=== PATIENT | male | born 1965 | race Caucasian/White ===

== ENCOUNTER 2017-01-05 11:24 | Emergency (ER) | payer OTHER ==
[~2017-01-05] VITALS: Ht 152.4 cm; Wt 43.3 kg
[~2017-01-05 11:24] MED LIST: AIRBORNE TABLE1 EAC1 PO; ALEVAZOL56.7 GM TP; ALLERGY REL1 MG/1 M1 PO; AMOX TR-K CLV1 EAC4 PO; ASCORBIC ACID250 MG PO; ASCORBIC ACID500 MG PO; AUGMENTIN80 MG/ML PO; BISAC-EVAC10 MG PR; CARBAMAZEP100 MG/5 M PO; CHILDREN'S100 MG/51 PO; DULCOLAX10 MG PR; DUONEB 2.5-0.5 M3 ML AEROSOL; FLONASE16 G1 BOTH NARES; FLONASE16 GM NS; FLUTICASONE PRO16 GM BOTH NARES; FORTICAL3.7 ML ALT NARES; FORTICAL3.7 ML NS; HYCODAN SYRUP480 ML PO; KEPPRA100 MG/1 M PO; LAMICTAL100 MG PO; LAMICTAL150 M1 PO; LAMICTAL200 MG PO; LAMOTRIGINE200 MG PO; LEVETIRACE100 MG/1 M PO; LIQUITUSS200 MG/5 M PO; LORAZEPAM1 MG PO; MIRALAX17 GM PO; MIRALAX255 GM PO; MYCOSTATIN 100,60 ML PO; NEBS; NEXIUM40 MG PO; NYSTOP60 GM TP; PERIDEX1 ML MM; PROVENTIL,2.5 MG/3 M IH; SINGULAIR10 MG PO; TEGRETOL100 MG/5 M PO; TESSALON PERLE100 MG PO; TUMS500 MG PO; VITAMIN D2000 UNI1 PO; VITAMIN D31000 UNI2 PO; VITAMIN D31000 UNIT PO; ZANTAC150 MG PO; ZANTAC75 M1 PO; ZYRTEC SYRUP1 MG/ML PO
[2017-01-05 12:58] LABS: EOSINOPHIL (%) 0.4 % (0-5); EOSINOPHIL COUNT 0.1 K/uL (0-0.3); HEMATOCRIT 39.4 % (38.0-50.0); IMMATURE GRANULOCYTE (%) 0.4 % (0.0-0.7); IMMATURE GRANULOCYTE COUNT 0.5 K/uL; LYMPHOCYTE COUNT 0.5 K/uL (1.0-2.8); MCH 32.5 PG (29.0-34.0); MCHC 34.3 G/DL (30.0-36.0); MCV 94.7 FL (86-99); MEAN PLAT.VOLUME 8.5 uM^3 (9.0-12.4); MONOCYTE (%) 11.9 % (3-12); MONOCYTE COUNT 1.4 K/uL (0-0.8); NEUTROPHIL (%) 82.4 % (45-76); NEUTROPHIL COUNT 9.5 K/uL (1.8-6.4); PLATELET COUNT 313 K/uL (156-360); RBC DIS.WIDTH-CV 13.7 % (11.8-14.6); RED BLOOD COUNT 4.16 M/uL (4.00-5.50); WHITE BLOOD COUNT 11.5 K/uL (4.1-10.2)
[2017-01-05 13:06] LABS: CHLORIDE 100 mEq/L (99-109); POTASSIUM 3.9 mEq/L (3.7-5.4); SODIUM 137 mEq/L (136-147)
[2017-01-05 13:08] LABS: GLUCOSE 113 mg/dL (70-99)
[2017-01-05 13:09] LABS: ANION GAP 10 MEQ/L (2-14)
[2017-01-05 13:12] LABS: GFR ESTIMATE (CALCULATED) > 59 mL/min/; UREA NITROGEN (BUN) 13 mg/dL (9-23)
[2017-01-05 14:59] LABS: ADD MIUA? YES; BILIRUBIN NEGATIVE; BLOOD NEGATIVE; GLUCOSE (STRIP) NEGATIVE; KETONES NEGATIVE; LEUKOCYTES NEGATIVE; NITRITE NEGATIVE; PROTEIN (STRIP) 30; SPECIFIC GRAVITY 1.021 (1.000-1.030)
[2017-01-05 15:02] LABS: COLOR DK YELLOW ((YELLOW))
[2017-01-05 15:10] LABS: AMORPHOUS PHOSPHATE CRYSTALS 4+; BACTERIA RARE /HPF; CALCIUM OXALATE CRYSTALS RARE /HPF; CASTS NONE SEEN /LPF; CRYSTALS PRESENT; EPITHELIAL CELLS NONE SEEN /HPF; MUCUS 2+ /LPF; RED BLOOD CELLS RARE /HPF (0-5); UCUL ADDED? NO; WHITE BLOOD CELLS 0-5 /HPF (0-5)
[2017-01-05] MEDS ORDERED: AMOXICILLI250 MG/5 M PO (15:24)
[2017-01-05 16:40] VITALS: BP 105/69
== END 2017-01-05 16:59 | disposition home or self-care (01) ==
LOC: EME → EDBD 11:24 → EME 11:24
PROVIDERS: Emergency Medicine
DX: J44.0 Chronic obstructive pulmonary disease with (acute) lower respiratory infection (principal); J20.9 Acute bronchitis, unspecified; J45.909 Unspecified asthma, uncomplicated; G80.9 Cerebral palsy, unspecified
CPT/HCPCS: 71010; 80048; 81003; 85025; 99281; 99284

== ENCOUNTER 2017-02-08 13:28 | Inpatient (IN) | payer OTHER ==
[~2017-02-08] VITALS: Ht 175.3 cm; Wt 44.6 kg
[~2017-02-08 13:28] MED LIST changes: +AMOXICILLI250 MG/5 M PO
[2017-02-08 13:59] LABS: MCH 31.6 PG (29.0-34.0); MCHC 33.4 G/DL (30.0-36.0); MCV 94.6 FL (86-99); MEAN PLAT.VOLUME 8.1 uM^3 (9.0-12.4); PLATELET COUNT 437 K/uL (156-360); RBC DIS.WIDTH-CV 13.4 % (11.8-14.6); RBC DIS.WIDTH-SD 47.2 % (39-53); RED BLOOD COUNT 4.65 M/uL (4.00-5.50); WHITE BLOOD COUNT 5.6 K/uL (4.1-10.2)
[2017-02-08 14:12] LABS: CHLORIDE 95 mEq/L (99-109); POTASSIUM 4.7 mEq/L (3.7-5.4); SODIUM 132 mEq/L (136-147)
[2017-02-08 14:16] LABS: ANION GAP 12 MEQ/L (2-14); GLUCOSE 117 mg/dL (70-99); MAGNESIUM 2.5 mg/dL (1.3-2.7)
[2017-02-08 14:18] LABS: GFR ESTIMATE (CALCULATED) > 59 mL/min/
[2017-02-08 14:19] LABS: UREA NITROGEN (BUN) 10 mg/dL (9-23)
[2017-02-08] MEDS ORDERED: TEGRETOL100 MG/5 M PO ×2 (17:24)
[2017-02-08] MEDS ORDERED: CALCITONIN-SAL3.8 ML ALT NARES (17:26)
[2017-02-08] MEDS ORDERED: DIASTAT2.5 MG PR (17:27)
[2017-02-08 21:30] VITALS: BP 104/69
[2017-02-08 22:45] VITALS: BP 110/70
[2017-02-09 06:37] LABS: MCH 31.7 PG (29.0-34.0); MCHC 33.3 G/DL (30.0-36.0); MEAN PLAT.VOLUME 9.1 uM^3 (9.0-12.4); PLATELET COUNT 400 K/uL (156-360); RBC DIS.WIDTH-CV 13.6 % (11.8-14.6); RBC DIS.WIDTH-SD 47.6 % (39-53); RED BLOOD COUNT 3.79 M/uL (4.00-5.50)
[2017-02-09 06:38] LABS: WHITE BLOOD COUNT 7.6 K/uL (4.1-10.2)
[2017-02-09 06:47] LABS: ALKALINE PHOSPHATASE 70 IU/L (3-129); ANION GAP 11 MEQ/L (2-14); CHLORIDE 97 MEQ/L (99-109); GFR ESTIMATE (CALCULATED) > 59 mL/min/; GLUCOSE 91 mg/dL (70-99); SAMPLE HEMOLYSIS CHECK 0; SAMPLE ICTERIC CHECK 0; SAMPLE LIPEMIA CHECK 0; SODIUM 135 MEQ/L (136-147); TOTAL BILIRUBIN 0.5 MG/DL (0.0-1.0); UREA NITROGEN (BUN) 8 mg/dL (9-23)
[2017-02-09 08:20] VITALS: BP 138/82
[2017-02-09 18:19] VITALS: BP 140/79
[2017-02-09 22:39] VITALS: BP 154/84
[2017-02-10 03:37] VITALS: BP 131/81
[2017-02-10 07:43] VITALS: BP 139/83
[2017-02-10] MEDS ORDERED: TEGRETOL100 MG/5 M PO (12:37)
== END 2017-02-10 15:13 | disposition home or self-care (01) | DRG 100 ==
LOC: EME → EDBD 13:28 → EME 13:28 → EDOF 19:28 → 5EAST 19:28
PROVIDERS: Emergency Medicine; Hospitalist
DX: G40.909 Epilepsy, unspecified, not intractable, without status epilepticus (principal); T42.1X5A Adverse effect of iminostilbenes, initial encounter; E87.1 Hypo-osmolality and hyponatremia; G80.0 Spastic quadriplegic cerebral palsy; J44.9 Chronic obstructive pulmonary disease, unspecified; K21.9 Gastro-esophageal reflux disease without esophagitis; M81.0 Age-related osteoporosis without current pathological fracture; D47.3 Essential (hemorrhagic) thrombocythemia; R13.10 Dysphagia, unspecified; J45.909 Unspecified asthma, uncomplicated; Z99.81 Dependence on supplemental oxygen
CPT/HCPCS: 71010; 80048; 80053; 80156; 81003; 83735; 85027; 93005; 95819; 99202; 99281; 99284; J1650; J1953; J2060; J7030; J7050

== ENCOUNTER 2017-06-20 23:25 | Observation (INO) | payer OTHER ==
[~2017-06-20] VITALS: Ht 175.3 cm; Wt 39.1 kg
[~2017-06-20 23:25] MED LIST changes: +CALCITONIN-SAL3.8 ML ALT NARES; +DIASTAT2.5 MG PR
[2017-06-21 00:23] LABS: EOSINOPHIL (%) 3.8 % (0-5); EOSINOPHIL COUNT 0.3 K/uL (0-0.3); HEMATOCRIT 39.7 % (38.0-50.0); IMMATURE GRANULOCYTE (%) 0.5 % (0.0-0.7); INSTRUMENT ABS NEUTROPHIL CT 4.9 K/uL; LYMPHOCYTE COUNT 0.9 K/uL (1.0-2.8); MCHC 33.5 G/DL (30.0-36.0); MCV 95.4 FL (86-99); MEAN PLAT.VOLUME 8.3 uM^3 (9.0-12.4); MONOCYTE (%) 7.6 % (3-12); MONOCYTE COUNT 0.5 K/uL (0-0.8); NEUTROPHIL COUNT 4.9 K/uL (1.8-6.4); PLATELET COUNT 348 K/uL (156-360); RBC DIS.WIDTH-CV 13.1 % (11.8-14.6); RED BLOOD COUNT 4.16 M/uL (4.00-5.50); WHITE BLOOD COUNT 6.6 K/uL (4.1-10.2)
[2017-06-21 00:34] LABS: CHLORIDE 96 mEq/L (99-109); POTASSIUM 4.1 mEq/L (3.7-5.4); SODIUM 134 mEq/L (136-147)
[2017-06-21 00:37] LABS: GLUCOSE 106 mg/dL (70-99)
[2017-06-21 00:38] LABS: ANION GAP 9 MEQ/L (2-14)
[2017-06-21 00:39] LABS: TOTAL BILIRUBIN 0.3 mg/dL (0.0-1.0)
[2017-06-21 00:40] LABS: ALKALINE PHOSPHATASE 76 IU/L (3-129); GFR ESTIMATE (CALCULATED) > 59 mL/min/
[2017-06-21 00:42] LABS: TROP-I INTERPRETATION NEGATIVE; TROPONIN-I < 0.01 ng/mL (0.0-0.30); UREA NITROGEN (BUN) 10 mg/dL (9-23)
[2017-06-21 00:43] LABS: CREATINE KINASE 39 IU/L (1-294); TOTAL CK 39 IU/L (1-294)
[2017-06-21 00:54] LABS: CK-MB 0.8 ng/mL (0.0-4.9)
[2017-06-21] MEDS ORDERED: TYLENOL EXTRA500 MG PO (01:06)
[2017-06-21 01:12] LABS: ADD MIUA? YES; BILIRUBIN NEGATIVE; BLOOD NEGATIVE; COLOR STRAW ((YELLOW)); GLUCOSE (STRIP) NEGATIVE; KETONES 5; LEUKOCYTES NEGATIVE; NITRITE NEGATIVE; PROTEIN (STRIP) NEGATIVE; UROBILINOGEN 0.2 MG/DL (0.2-1.0)
[2017-06-21 01:37] LABS: AMORPHOUS PHOSPHATE CRYSTALS 3+; BACTERIA NONE SEEN /HPF; CASTS NONE SEEN /LPF; CRYSTALS PRESENT; EPITHELIAL CELLS RARE /HPF; MUCUS NONE SEEN /LPF; RED BLOOD CELLS NONE SEEN /HPF (0-5); UCUL ADDED? NO; WHITE BLOOD CELLS RARE /HPF (0-5)
[2017-06-21 02:03] LABS: INTER. NORMALIZED RATIO 0.9; PROTHROMBIN TIME 10.3 SEC (10.2-12.9)
[2017-06-21 02:06] LABS: D-DIMER ELISA < 150.00 ng/mLDDU (<230); PTT 41.9 SEC (25-37)
[2017-06-21 04:57] VITALS: BP 151/117
[2017-06-21 06:58] LABS: TROP-I INTERPRETATION NEGATIVE; TROPONIN-I < 0.01 ng/mL (0.0-0.30)
[2017-06-21 09:13] VITALS: BP 152/89
[2017-06-21 11:57] VITALS: BP 147/75
[2017-06-21 13:50] LABS: TROP-I INTERPRETATION NEGATIVE; TROPONIN-I < 0.01 ng/mL (0.0-0.30)
[2017-06-21 16:28] VITALS: BP 116/68
[2017-06-21 21:31] VITALS: BP 185/88
[2017-06-22 00:45] VITALS: BP 134/76
[2017-06-22 03:30] VITALS: BP 95/57
[2017-06-22 06:02] LABS: HEMATOCRIT 33.9 % (38.0-50.0); MCH 31.7 PG (29.0-34.0); MCHC 33.3 G/DL (30.0-36.0); MEAN PLAT.VOLUME 8.6 uM^3 (9.0-12.4); PLATELET COUNT 324 K/uL (156-360); RBC DIS.WIDTH-CV 13.2 % (11.8-14.6); RBC DIS.WIDTH-SD 46.1 % (39-53); RED BLOOD COUNT 3.57 M/uL (4.00-5.50)
[2017-06-22 06:17] LABS: ANION GAP 6 MEQ/L (2-14); CHLORIDE 101 MEQ/L (99-109); GFR ESTIMATE (CALCULATED) > 59 mL/min/; GLUCOSE 85 mg/dL (70-99); POTASSIUM 3.9 MEQ/L (3.7-5.4); SAMPLE HEMOLYSIS CHECK 0; SAMPLE ICTERIC CHECK 0; SAMPLE LIPEMIA CHECK 0; SODIUM 137 MEQ/L (136-147); UREA NITROGEN (BUN) 18 mg/dL (9-23)
[2017-06-22 07:15] VITALS: BP 140/90
[2017-06-22 13:19] VITALS: BP 94/60
[2017-06-22] MEDS ORDERED: AMOX TR-K CLV1 EAC4 PO (13:33)
== END 2017-06-22 16:43 | disposition home or self-care (01) ==
LOC: EME → EDBD 23:25 → EME 23:25 → EDOF 06-21 01:38 → 5WEST 06-21 01:38 → ENRESERV 06-21 01:41 → 5WEST 06-21 04:34
PROVIDERS: Emergency Medicine; Hospitalist
DX: R06.02 Shortness of breath (principal); R09.02 Hypoxemia; J69.0 Pneumonitis due to inhalation of food and vomit; G40.901 Epilepsy, unspecified, not intractable, with status epilepticus; J44.9 Chronic obstructive pulmonary disease, unspecified; R13.10 Dysphagia, unspecified; G80.0 Spastic quadriplegic cerebral palsy; K21.9 Gastro-esophageal reflux disease without esophagitis; J30.9 Allergic rhinitis, unspecified; E87.1 Hypo-osmolality and hyponatremia; Z83.3 Family history of diabetes mellitus; Z88.1 Allergy status to other antibiotic agents; Z88.8 Allergy status to other drugs, medicaments and biological substances; Z79.82 Long term (current) use of aspirin
CPT/HCPCS: 70450; 71010; 71250; 80048; 80053; 80156; 80175 90; 81003; 82550; 82553; 83605; 84484; 85025; 85027; 85379; 85610; 85730; 87040; 93005; 95819; 99202; 99281; 99285; G0378; J1650; J2543; J7030; J7040; J7050

== ENCOUNTER 2017-07-08 22:31 | Emergency (ER) | payer OTHER ==
[~2017-07-08] VITALS: Ht 175.3 cm; Wt 37.9 kg
[~2017-07-08 22:31] MED LIST changes: +TYLENOL EXTRA500 MG PO
[2017-07-09 00:35] LABS: ADD MIUA? YES; BILIRUBIN NEGATIVE; BLOOD NEGATIVE; COLOR YELLOW ((YELLOW)); GLUCOSE (STRIP) NEGATIVE; KETONES NEGATIVE; LEUKOCYTES NEGATIVE; NITRITE NEGATIVE; PROTEIN (STRIP) 30; SPECIFIC GRAVITY 1.027 (1.000-1.030); UROBILINOGEN 0.2 MG/DL (0.2-1.0)
[2017-07-09 00:38] LABS: EOSINOPHIL (%) 4.9 % (0-5); EOSINOPHIL COUNT 0.2 K/uL (0-0.3); HEMATOCRIT 40.4 % (38.0-50.0); IMMATURE GRANULOCYTE (%) 0.2 % (0.0-0.7); INSTRUMENT ABS NEUTROPHIL CT 2.7 K/uL; MCH 32.2 PG (29.0-34.0); MCHC 33.9 G/DL (30.0-36.0); MCV 95.1 FL (86-99); MEAN PLAT.VOLUME 8.3 uM^3 (9.0-12.4); MONOCYTE (%) 14.4 % (3-12); MONOCYTE COUNT 0.7 K/uL (0-0.8); NEUTROPHIL (%) 58.2 % (45-76); NEUTROPHIL COUNT 2.7 K/uL (1.8-6.4); PLATELET COUNT 318 K/uL (156-360); RBC DIS.WIDTH-CV 13.1 % (11.8-14.6); RBC DIS.WIDTH-SD 45.8 % (39-53); RED BLOOD COUNT 4.25 M/uL (4.00-5.50); WHITE BLOOD COUNT 4.7 K/uL (4.1-10.2)
[2017-07-09 00:40] LABS: CHLORIDE 99 mEq/L (99-109); SODIUM 136 mEq/L (136-147)
[2017-07-09 00:46] LABS: UREA NITROGEN (BUN) 14 mg/dL (9-23)
[2017-07-09 01:07] LABS: GLUCOSE 90 mg/dL (70-99)
[2017-07-09 01:09] LABS: ANION GAP 10 MEQ/L (2-14)
[2017-07-09 01:11] LABS: GFR ESTIMATE (CALCULATED) > 59 mL/min/
[2017-07-09 01:22] LABS: BACTERIA 1+ /HPF; EPITHELIAL CELLS RARE /HPF; MUCUS 3+ /LPF; RED BLOOD CELLS 0-5 /HPF (0-5); UCUL ADDED? NO; WHITE BLOOD CELLS 0-5 /HPF (0-5)
[2017-07-09] MEDS ORDERED: AUGMENTIN875 MG PO (02:44)
[2017-07-09] MEDS ORDERED: AUGMENTIN80 MG/ML PO (04:12)
[2017-07-09 04:50] VITALS: BP 180/90
== END 2017-07-09 04:40 | disposition home or self-care (01) ==
LOC: EME → EDBD 22:31 → EME 07-09 04:40
PROVIDERS: Emergency Medicine
DX: K02.9 Dental caries, unspecified (principal); K05.10 Chronic gingivitis, plaque induced; J98.11 Atelectasis; G80.9 Cerebral palsy, unspecified; J44.9 Chronic obstructive pulmonary disease, unspecified; G40.909 Epilepsy, unspecified, not intractable, without status epilepticus; K21.9 Gastro-esophageal reflux disease without esophagitis
CPT/HCPCS: 71010; 71250; 80048; 81003; 83605; 85025; 87040; 87077; 87186; 87801; 94640; 99281; 99285; J7030

== ENCOUNTER 2017-07-19 10:58 | Emergency (ER) | payer OTHER ==
[~2017-07-19] VITALS: Ht 175.3 cm; Wt 39.7 kg
[~2017-07-19 10:58] MED LIST changes: +AUGMENTIN875 MG PO
[2017-07-19 13:42] LABS: CHLORIDE 97 mEq/L (99-109); SODIUM 133 mEq/L (136-147)
[2017-07-19 13:44] LABS: GLUCOSE 101 mg/dL (70-99)
[2017-07-19 13:45] LABS: ANION GAP 11 MEQ/L (2-14)
[2017-07-19 13:48] LABS: GFR ESTIMATE (CALCULATED) > 59 mL/min/; UREA NITROGEN (BUN) 10 mg/dL (9-23)
[2017-07-19 13:53] LABS: EOSINOPHIL (%) 0.4 % (0-5); HEMATOCRIT 37.3 % (38.0-50.0); IMMATURE GRANULOCYTE (%) 0.8 % (0.0-0.7); IMMATURE GRANULOCYTE COUNT 0.1 K/uL; LYMPHOCYTE COUNT 0.6 K/uL (1.0-2.8); MCH 32.6 PG (29.0-34.0); MCHC 34.6 G/DL (30.0-36.0); MCV 94.2 FL (86-99); MEAN PLAT.VOLUME 8.3 uM^3 (9.0-12.4); MONOCYTE (%) 3.7 % (3-12); MONOCYTE COUNT 0.4 K/uL (0-0.8); NEUTROPHIL (%) 89.3 % (45-76); PLATELET COUNT 298 K/uL (156-360); RBC DIS.WIDTH-CV 12.7 % (11.8-14.6); RBC DIS.WIDTH-SD 44.3 % (39-53); RED BLOOD COUNT 3.96 M/uL (4.00-5.50); WHITE BLOOD COUNT 11.2 K/uL (4.1-10.2)
[2017-07-19 14:35] LABS: SAMPLE HEMOLYSIS CHECK 1; SAMPLE ICTERIC CHECK 0; SAMPLE LIPEMIA CHECK 0
[2017-07-19] MEDS ORDERED: LEVAQUIN750 MG PO (14:35)
[2017-07-19 16:14] VITALS: BP 166/88
== END 2017-07-19 16:26 | disposition home or self-care (01) ==
LOC: EME 10:58
PROVIDERS: Emergency Medicine
DX: G40.909 Epilepsy, unspecified, not intractable, without status epilepticus (principal); J18.9 Pneumonia, unspecified organism; J44.0 Chronic obstructive pulmonary disease with (acute) lower respiratory infection; R11.2 Nausea with vomiting, unspecified; G80.9 Cerebral palsy, unspecified; I45.10 Unspecified right bundle-branch block
CPT/HCPCS: 71010; 80048; 80156; 85025; 93005; 99281; 99284

== ENCOUNTER 2017-07-23 10:48 | Emergency (ER) | payer OTHER ==
[~2017-07-23] VITALS: Ht 175.3 cm; Wt 40.3 kg
[~2017-07-23 10:48] MED LIST changes: +LEVAQUIN750 MG PO
[2017-07-23 12:11] LABS: EOSINOPHIL (%) 2.5 % (0-5); EOSINOPHIL COUNT 0.1 K/uL (0-0.3); HEMATOCRIT 39.2 % (38.0-50.0); IMMATURE GRANULOCYTE (%) 0.4 % (0.0-0.7); INSTRUMENT ABS NEUTROPHIL CT 3.8 K/uL; LYMPHOCYTE COUNT 0.9 K/uL (1.0-2.8); MCH 32.7 PG (29.0-34.0); MCHC 33.4 G/DL (30.0-36.0); MCV 97.8 FL (86-99); MONOCYTE COUNT 0.7 K/uL (0-0.8); NEUTROPHIL (%) 67.8 % (45-76); NEUTROPHIL COUNT 3.8 K/uL (1.8-6.4); RBC DIS.WIDTH-CV 13.2 % (11.8-14.6); RBC DIS.WIDTH-SD 46.8 % (39-53); RED BLOOD COUNT 4.01 M/uL (4.00-5.50); WHITE BLOOD COUNT 5.7 K/uL (4.1-10.2)
[2017-07-23 12:13] LABS: MEAN PLAT.VOLUME 8.4 uM^3 (9.0-12.4); PLATELET COUNT 313 K/uL (156-360)
[2017-07-23 12:21] LABS: CHLORIDE 102 mEq/L (99-109); POTASSIUM 3.9 mEq/L (3.7-5.4)
[2017-07-23 12:22] LABS: SODIUM 141 mEq/L (136-147)
[2017-07-23 12:23] LABS: GLUCOSE 108 mg/dL (70-99)
[2017-07-23 12:24] LABS: ANION GAP 12 MEQ/L (2-14)
[2017-07-23 12:27] LABS: GFR ESTIMATE (CALCULATED) > 59 mL/min/
[2017-07-23 12:28] LABS: UREA NITROGEN (BUN) 18 mg/dL (9-23)
[2017-07-23 16:49] VITALS: BP 133/82
== END 2017-07-23 16:51 | disposition home or self-care (01) ==
LOC: EME 10:48
PROVIDERS: Emergency Medicine
DX: G40.909 Epilepsy, unspecified, not intractable, without status epilepticus (principal); G80.9 Cerebral palsy, unspecified; J44.9 Chronic obstructive pulmonary disease, unspecified
CPT/HCPCS: 71010; 80048; 80156; 85025; 99281; 99284; J2250

== ENCOUNTER 2017-07-26 20:20 | Emergency (ER) | payer OTHER ==
[~2017-07-26] VITALS: Ht 175.3 cm; Wt 37.7 kg
[2017-07-26 21:28] LABS: CARBON DIOXIDE (BICARBONATE) 33.8 MEQ/L (20-31)
[2017-07-26 21:31] LABS: HEMATOCRIT 43.1 % (38.0-50.0); MCHC 32.9 G/DL (30.0-36.0); MCV 97.1 FL (86-99); MEAN PLAT.VOLUME 8.3 uM^3 (9.0-12.4); PLATELET COUNT 405 K/uL (156-360); RBC DIS.WIDTH-CV 13.2 % (11.8-14.6); RBC DIS.WIDTH-SD 47.4 % (39-53); RED BLOOD COUNT 4.44 M/uL (4.00-5.50); WHITE BLOOD COUNT 6.7 K/uL (4.1-10.2)
[2017-07-26 21:36] LABS: CHLORIDE 99 mEq/L (99-109); POTASSIUM 4.2 mEq/L (3.7-5.4); SODIUM 137 mEq/L (136-147)
[2017-07-26 21:38] LABS: GLUCOSE 99 mg/dL (70-99)
[2017-07-26 21:39] LABS: ANION GAP 11 MEQ/L (2-14)
[2017-07-26 21:41] LABS: GFR ESTIMATE (CALCULATED) > 59 mL/min/
[2017-07-26 21:42] LABS: UREA NITROGEN (BUN) 14 mg/dL (9-23)
[2017-07-26 21:48] LABS: TROP-I INTERPRETATION NEGATIVE; TROPONIN-I < 0.01 ng/mL (0.0-0.30)
[2017-07-27 01:22] VITALS: BP 105/74
== END 2017-07-27 01:25 | disposition home or self-care (01) ==
LOC: EME → EDBD 20:20 → EME 07-27 01:25
PROVIDERS: Emergency Medicine
DX: T42.1X1A Poisoning by iminostilbenes, accidental (unintentional), initial encounter (principal); R41.82 Altered mental status, unspecified; R40.0 Somnolence; G40.909 Epilepsy, unspecified, not intractable, without status epilepticus; G80.9 Cerebral palsy, unspecified; J44.9 Chronic obstructive pulmonary disease, unspecified
CPT/HCPCS: 71010; 80048; 80156; 82803; 83605; 83880; 84484; 85027; 87040; 93005; 99281; 99284

== ENCOUNTER 2017-11-03 13:15 | Emergency (ER) | payer OTHER ==
[~2017-11-03] VITALS: Ht 175.3 cm; Wt 43.1 kg
[2017-11-03 13:59] LABS: EOSINOPHIL (%) 0.5 % (0-5); HEMATOCRIT 40.8 % (38.0-50.0); IMMATURE GRANULOCYTE (%) 0.4 % (0.0-0.7); INSTRUMENT ABS NEUTROPHIL CT 7.2 K/uL; LYMPHOCYTE COUNT 0.4 K/uL (1.0-2.8); MCH 32.1 PG (29.0-34.0); MCHC 33.8 G/DL (30.0-36.0); MCV 94.9 FL (86-99); MEAN PLAT.VOLUME 8.3 uM^3 (9.0-12.4); MONOCYTE (%) 3.1 % (3-12); MONOCYTE COUNT 0.3 K/uL (0-0.8); NEUTROPHIL (%) 90.4 % (45-76); NEUTROPHIL COUNT 7.2 K/uL (1.8-6.4); PLATELET COUNT 291 K/uL (156-360); RBC DIS.WIDTH-CV 12.5 % (11.8-14.6); RBC DIS.WIDTH-SD 43.7 % (39-53)
[2017-11-03 14:08] LABS: CHLORIDE 97 mEq/L (99-109); SODIUM 135 mEq/L (136-147)
[2017-11-03 14:09] LABS: MAGNESIUM 2.2 mg/dL (1.3-2.7)
[2017-11-03 14:10] LABS: GLUCOSE 111 mg/dL (70-99)
[2017-11-03 14:11] LABS: ANION GAP 10 MEQ/L (2-14)
[2017-11-03 14:12] LABS: TOTAL BILIRUBIN 0.2 mg/dL (0.0-1.0)
[2017-11-03 14:14] LABS: ALKALINE PHOSPHATASE 106 IU/L (3-129); GFR ESTIMATE (CALCULATED) > 59 mL/min/ (58.99-99999)
[2017-11-03 14:15] LABS: UREA NITROGEN (BUN) 10 mg/dL (9-23)
[2017-11-03 14:17] LABS: LIPASE 14 U/L (1.0-51.0)
[2017-11-03 14:20] LABS: TROP-I INTERPRETATION NEGATIVE; TROPONIN-I < 0.01 ng/mL (0.0-0.30)
[2017-11-03 15:11] LABS: ADD MIUA? YES; BILIRUBIN NEGATIVE; BLOOD NEGATIVE; COLOR YELLOW ((YELLOW)); GLUCOSE (STRIP) NEGATIVE; KETONES 5; LEUKOCYTES NEGATIVE; NITRITE NEGATIVE; PROTEIN (STRIP) NEGATIVE; SPECIFIC GRAVITY 1.013 (1.000-1.030); UROBILINOGEN 0.2 MG/DL (0.2-1.0)
[2017-11-03 15:37] LABS: AMORPHOUS PHOSPHATE CRYSTALS 3+; BACTERIA NONE SEEN /HPF; CASTS NONE SEEN /LPF; CRYSTALS PRESENT; EPITHELIAL CELLS NONE SEEN /HPF; MUCUS RARE /LPF; RED BLOOD CELLS NONE SEEN /HPF (0-5); UCUL ADDED? NO; WHITE BLOOD CELLS NONE SEEN /HPF (0-5)
[2017-11-03 17:07] VITALS: BP 113/77
== END 2017-11-03 17:13 | disposition home or self-care (01) ==
LOC: EME 13:15
PROVIDERS: Emergency Medicine
DX: R11.10 Vomiting, unspecified (principal); K59.00 Constipation, unspecified; G80.9 Cerebral palsy, unspecified; J44.9 Chronic obstructive pulmonary disease, unspecified; K21.9 Gastro-esophageal reflux disease without esophagitis; G40.909 Epilepsy, unspecified, not intractable, without status epilepticus; Z88.1 Allergy status to other antibiotic agents
CPT/HCPCS: 71010; 74000; 80053; 81003; 83690; 83735; 84484; 85025; 93005; 99281; 99285

== ENCOUNTER 2018-03-02 22:16 | Observation (INO) | payer OTHER ==
[~2018-03-02] VITALS: Ht 175.3 cm; Wt 36.2 kg
[2018-03-02 23:11] LABS: BASOPHIL (%) 0.9 % (0-1); EOSINOPHIL (%) 4.2 % (0-5); EOSINOPHIL COUNT 0.2 K/uL (0-0.3); HEMATOCRIT 39.2 % (38.0-50.0); HEMOGLOBIN 13.7 G/DL (12.5-16.6); IMMATURE GRANULOCYTE (%) 0.2 % (0.0-0.7); LYMPHOCYTE (%) 19.3 % (15-42); LYMPHOCYTE COUNT 0.8 K/uL (1.0-2.8); MCHC 34.9 G/DL (30.0-36.0); MCV 97.3 FL (86-99); MONOCYTE (%) 12.4 % (3-12); MONOCYTE COUNT 0.5 K/uL (0-0.8); NEUTROPHIL COUNT 2.7 K/uL (1.8-6.4); PLATELET COUNT 318 K/uL (156-360); RBC DIS.WIDTH-CV 12.8 % (11.8-14.6); RBC DIS.WIDTH-SD 46.3 % (39-53); RED BLOOD COUNT 4.03 M/uL (4.00-5.50); WHITE BLOOD COUNT 4.3 K/uL (4.1-10.2)
[2018-03-02 23:21] LABS: ALBUMIN 4.6 g/dL (3.2-4.8); CHLORIDE 100 mEq/L (99-109); SODIUM 135 mEq/L (136-147)
[2018-03-02 23:24] LABS: GLUCOSE 102 mg/dL (70-99); TOTAL PROTEIN 7.3 g/dL (6.4-8.3)
[2018-03-02 23:26] LABS: TOTAL BILIRUBIN 0.3 mg/dL (0.0-1.0)
[2018-03-02 23:27] LABS: ALKALINE PHOSPHATASE 73 IU/L (3-129); CREATININE 0.5 mg/dL (0.6-1.3); GFR ESTIMATE (CALCULATED) > 59 mL/min/ (58.99-99999)
[2018-03-02 23:28] LABS: UREA NITROGEN (BUN) 13 mg/dL (9-23)
[2018-03-02 23:29] LABS: AST (GOT) 24 IU/L (2-34)
[2018-03-02 23:30] LABS: ALT (GPT) 28 IU/L (3-49)
[2018-03-02 23:31] LABS: TROP-I INTERPRETATION NEGATIVE; TROPONIN-I < 0.01 ng/mL (0.0-0.30)
[2018-03-03] MEDS ORDERED: CARBAMAZEP100 MG/5 M PO ×2 (00:31)
[2018-03-03] MEDS ORDERED: TEGRETOL100 MG/5 M PO (00:31)
[2018-03-03] MEDS ORDERED: KENALOG,ARISTOC15 G3 TP (00:33)
[2018-03-03 01:38] VITALS: BP 141/90
[2018-03-03 02:23] LABS: CARBAMAZEPINE (TEGRETOL) 7.3 MCG/ML (4.0-12.0)
[2018-03-03 11:17] VITALS: BP 107/68
[2018-03-03 20:28] VITALS: BP 102/50
[2018-03-03 23:29] VITALS: BP 124/64
[2018-03-04 07:03] LABS: BASOPHIL (%) 0.1 % (0-1); EOSINOPHIL (%) 0 % (0-5); HEMATOCRIT 37.4 % (38.0-50.0); HEMOGLOBIN 12.7 G/DL (12.5-16.6); IMMATURE GRANULOCYTE (%) 0.3 % (0.0-0.7); LYMPHOCYTE (%) 7.7 % (15-42); LYMPHOCYTE COUNT 0.6 K/uL (1.0-2.8); MCH 33.2 PG (29.0-34.0); MCV 97.7 FL (86-99); MONOCYTE (%) 3.1 % (3-12); MONOCYTE COUNT 0.2 K/uL (0-0.8); NEUTROPHIL (%) 88.8 % (45-76); NEUTROPHIL COUNT 6.6 K/uL (1.8-6.4); PLATELET COUNT 314 K/uL (156-360); RBC DIS.WIDTH-SD 46.5 % (39-53); RED BLOOD COUNT 3.83 M/uL (4.00-5.50); WHITE BLOOD COUNT 7.4 K/uL (4.1-10.2)
[2018-03-04 07:24] LABS: CHLORIDE 100 MEQ/L (99-109); CREATININE 0.4 MG/DL (0.6-1.3); GFR ESTIMATE (CALCULATED) > 59 mL/min/ (58.99-99999); GLUCOSE 124 mg/dL (70-99); POTASSIUM 4.3 MEQ/L (3.7-5.4); SODIUM 139 MEQ/L (136-147)
[2018-03-04 07:32] LABS: UREA NITROGEN (BUN) 23 mg/dL (9-23)
[2018-03-04 08:21] VITALS: BP 113/78
[2018-03-04] MEDS ORDERED: LEVAQUIN750 MG PO (08:58)
== END 2018-03-04 14:34 | disposition home or self-care (01) ==
LOC: EME → EDBD 22:16 → 5WEST 03-03 00:22 → EDOF 03-03 00:22 → ENRESERV 03-03 00:23 → 5WEST 03-03 01:30
PROVIDERS: Emergency Medicine; Internal Medicine
DX: R09.02 Hypoxemia (principal); G40.909 Epilepsy, unspecified, not intractable, without status epilepticus; G80.9 Cerebral palsy, unspecified; Z74.01 Bed confinement status; F73 Profound intellectual disabilities; K21.9 Gastro-esophageal reflux disease without esophagitis; M81.0 Age-related osteoporosis without current pathological fracture; R63.6 Underweight; Z68.1 Body mass index [BMI] 19.9 or less, adult; R13.10 Dysphagia, unspecified; Z79.82 Long term (current) use of aspirin; Z83.3 Family history of diabetes mellitus; Z88.1 Allergy status to other antibiotic agents
CPT/HCPCS: 71045; 80048; 80053; 80156; 83605; 84484; 85025; 87040; 94640; 94640 76; 94799; 99202; 99281; 99285; G0378; J1644; J1956; J2543; J2920; J7030

== ENCOUNTER 2018-05-30 15:01 | Emergency (ER) | payer OTHER ==
[~2018-05-30] VITALS: Ht 162.6 cm; Wt 39.2 kg
[~2018-05-30 15:01] MED LIST changes: +KENALOG,ARISTOC15 G3 TP
[2018-05-30 15:58] LABS: BASOPHIL (%) 0.4 % (0-1); EOSINOPHIL (%) 3.8 % (0-5); EOSINOPHIL COUNT 0.2 K/uL (0-0.3); HEMATOCRIT 36.7 % (38.0-50.0); HEMOGLOBIN 13.1 G/DL (12.5-16.6); IMMATURE GRANULOCYTE (%) 0.4 % (0.0-0.7); LYMPHOCYTE (%) 8.4 % (15-42); LYMPHOCYTE COUNT 0.4 K/uL (1.0-2.8); MCH 34.1 PG (29.0-34.0); MCHC 35.7 G/DL (30.0-36.0); MCV 95.6 FL (86-99); MONOCYTE (%) 7.3 % (3-12); MONOCYTE COUNT 0.3 K/uL (0-0.8); NEUTROPHIL (%) 79.7 % (45-76); NEUTROPHIL COUNT 3.6 K/uL (1.8-6.4); PLATELET COUNT 351 K/uL (156-360); RBC DIS.WIDTH-CV 12.4 % (11.8-14.6); RBC DIS.WIDTH-SD 43.2 % (39-53); RED BLOOD COUNT 3.84 M/uL (4.00-5.50); WHITE BLOOD COUNT 4.5 K/uL (4.1-10.2)
[2018-05-30 16:28] LABS: ALBUMIN 4.4 g/dL (3.2-4.8); CHLORIDE 94 mEq/L (99-109); POTASSIUM 4.8 mEq/L (3.7-5.4); SODIUM 131 mEq/L (136-147)
[2018-05-30 16:30] LABS: GLUCOSE 132 mg/dL (70-99); TOTAL PROTEIN 7.2 g/dL (6.4-8.3)
[2018-05-30 16:32] LABS: TOTAL BILIRUBIN 0.3 mg/dL (0.0-1.0)
[2018-05-30 16:34] LABS: ALKALINE PHOSPHATASE 85 IU/L (3-129); CREATININE 0.5 mg/dL (0.6-1.3); GFR ESTIMATE (CALCULATED) > 59 mL/min/ (58.99-99999)
[2018-05-30 16:35] LABS: UREA NITROGEN (BUN) 10 mg/dL (9-23)
[2018-05-30 16:36] LABS: AST (GOT) 29 IU/L (2-34)
[2018-05-30 16:37] LABS: ALT (GPT) 19 IU/L (3-49)
[2018-05-30 17:28] LABS: CARBAMAZEPINE (TEGRETOL) 8.5 MCG/ML (4.0-12.0)
[2018-05-30 20:30] VITALS: BP 143/93
== END 2018-05-30 20:39 | disposition home or self-care (01) ==
LOC: EME 15:01
PROVIDERS: Emergency Medicine
DX: G40.909 Epilepsy, unspecified, not intractable, without status epilepticus (principal); J44.9 Chronic obstructive pulmonary disease, unspecified; K21.9 Gastro-esophageal reflux disease without esophagitis; G80.9 Cerebral palsy, unspecified; Z86.69 Personal history of other diseases of the nervous system and sense organs; Z87.01 Personal history of pneumonia (recurrent); Z88.1 Allergy status to other antibiotic agents; Z88.8 Allergy status to other drugs, medicaments and biological substances
CPT/HCPCS: 71045; 80053; 80156; 80175 90; 81003; 85025; 99281; 99285

== ENCOUNTER 2018-07-15 10:07 | Emergency (ER) | payer OTHER ==
[~2018-07-15] VITALS: Ht 175.3 cm; Wt 38.5 kg
[2018-07-15 10:52] LABS: APPEARANCE CLOUDY ((CLEAR)); BILIRUBIN NEGATIVE; BLOOD NEGATIVE; COLOR YELLOW ((YELLOW)); GLUCOSE (STRIP) NEGATIVE; KETONES NEGATIVE; LEUKOCYTES NEGATIVE; NITRITE NEGATIVE; PROTEIN (STRIP) NEGATIVE; SPECIFIC GRAVITY 1.017 (1.000-1.030)
[2018-07-15 11:18] LABS: BACTERIA 1+ /HPF; EPITHELIAL CELLS NONE SEEN /HPF; MUCUS NONE SEEN /LPF; RED BLOOD CELLS NONE SEEN /HPF (0-5); UCUL ADDED? NO; WHITE BLOOD CELLS NONE SEEN /HPF (0-5)
[2018-07-15 11:19] LABS: AMORPHOUS PHOSPHATE CRYSTALS 2+
[2018-07-15 11:28] LABS: BASOPHIL (%) 0.5 % (0-1); EOSINOPHIL (%) 3.2 % (0-5); EOSINOPHIL COUNT 0.1 K/uL (0-0.3); HEMATOCRIT 40.5 % (38.0-50.0); HEMOGLOBIN 14.2 G/DL (12.5-16.6); IMMATURE GRANULOCYTE (%) 0.5 % (0.0-0.7); LYMPHOCYTE (%) 15.6 % (15-42); LYMPHOCYTE COUNT 0.6 K/uL (1.0-2.8); MCH 33.6 PG (29.0-34.0); MCHC 35.1 G/DL (30.0-36.0); MCV 95.7 FL (86-99); MONOCYTE (%) 8.4 % (3-12); MONOCYTE COUNT 0.3 K/uL (0-0.8); NEUTROPHIL (%) 71.8 % (45-76); NEUTROPHIL COUNT 2.9 K/uL (1.8-6.4); PLATELET COUNT 320 K/uL (156-360); RBC DIS.WIDTH-CV 12.5 % (11.8-14.6); RBC DIS.WIDTH-SD 43.8 % (39-53); RED BLOOD COUNT 4.23 M/uL (4.00-5.50)
[2018-07-15 11:39] LABS: ALBUMIN 4.5 g/dL (3.2-4.8); CHLORIDE 96 mEq/L (99-109); SODIUM 132 mEq/L (136-147)
[2018-07-15 11:41] LABS: GLUCOSE 150 mg/dL (70-99)
[2018-07-15 11:42] LABS: TOTAL PROTEIN 7.4 g/dL (6.4-8.3)
[2018-07-15 11:43] LABS: TOTAL BILIRUBIN 0.5 mg/dL (0.0-1.0)
[2018-07-15 11:45] LABS: ALKALINE PHOSPHATASE 67 IU/L (3-129); CREATININE 0.6 mg/dL (0.6-1.3); GFR ESTIMATE (CALCULATED) > 59 mL/min/ (58.99-99999)
[2018-07-15 11:46] LABS: UREA NITROGEN (BUN) 11 mg/dL (9-23)
[2018-07-15 11:47] LABS: AST (GOT) 18 IU/L (2-34)
[2018-07-15 11:48] LABS: ALT (GPT) 18 IU/L (3-49); CREATINE KINASE 42 IU/L (1-294); TOTAL CK 42 IU/L (1-294)
[2018-07-15 11:51] LABS: TROP-I INTERPRETATION NEGATIVE; TROPONIN-I < 0.01 ng/mL (0.0-0.30)
[2018-07-15 11:54] LABS: CK-MB 1.4 ng/mL (0.0-4.9); CKMB RELATIVE INDEX 3.3 (0.0-3.9)
[2018-07-15 12:30] LABS: CARBAMAZEPINE (TEGRETOL) 10.4 MCG/ML (4.0-12.0)
[2018-07-15 13:45] VITALS: BP 108/66
== END 2018-07-15 15:15 | disposition home or self-care (01) ==
LOC: EME 10:07
PROVIDERS: Emergency Medicine
DX: G40.909 Epilepsy, unspecified, not intractable, without status epilepticus (principal); G80.9 Cerebral palsy, unspecified; J44.9 Chronic obstructive pulmonary disease, unspecified; K21.9 Gastro-esophageal reflux disease without esophagitis; Z88.1 Allergy status to other antibiotic agents; Z88.8 Allergy status to other drugs, medicaments and biological substances
CPT/HCPCS: 71045; 80053; 80156; 81003; 82550; 82553; 83605; 84484; 85025; 93005; 99281; 99285